=== PATIENT | male | born 1970 | race Caucasian/White ===

== ENCOUNTER 2017-06-02 17:17 | Inpatient (IN) | payer OTHER ==
[~2017-06-02] VITALS: Ht 160 cm; Wt 80.8 kg
[2017-06-02 17:19] VITALS: BP 127/73; PULSE 109; RESP 16; TEMP 98.4; O2SAT 97
--- NOTE | 2017-06-02 17:32 | PD ---
Physical Exam Date Seen by Provider: Jun 02, 2017 Time Seen by Provider: 17:30 Narrative 47 YOWM C/O COUGH FOR 1 MONTH . JUST FINISHED ZPAK. HAD COUGHING SPELL TODAY WITH PASSING OUT . NO CP VS REVIEWED WAITING FOR BED PLACEMENT Data Data Last Documented VS Vital Signs Date Time Temp Pulse Resp B/P Pulse Ox O2 Delivery O2 Flow Rate FiO2 06/02/17 17:19 98.4 109 16 127/73 97 MDM Supervised Visit with ISABELL: Ricky Kathleen Jun 02, 2017 17:32
[2017-06-02 20:05] VITALS: BP 132/75; PULSE 93; RESP 23; TEMP 100.4; O2SAT 97
--- NOTE | 2017-06-02 20:11 | PD ---
HPI Chief Complaint: Syncope/Near-Syncope Time Seen by Provider: 20:11 Travel History International Travel<30 days: No Contact w/Intl Traveler<30days: No Traveled to known affect area: No History of Present Illness HPI 47-year-old male presents to the emergency department for evaluation single episode 2 today. Patient states he was lying on the couch and he coughs so hard that he lost consciousness twice. His at bedside states the first and lasted approximately 30 seconds and the second time lasted approximately a minute. He is here on vacation from [place]. The patient states the flight was approximately 1.5 hours. The patient states he feels fine at this time other than having a cough. No headache. No fevers or chills. No chest pain. He states he feels short of breath only because he is trying not to cough. No abdominal pain. No nausea, vomiting, diarrhea. He is currently on day 5 of the Z-Erick. He states he has been coughing for approximately a month. Patient denies any chronic medical process. He takes no other medications. Patient does state that he drinks 10-12 beers daily. He denies any illicit drug use. Patient does appear well on exam. [facility] Social History Alcohol Use: Yes (10-12 beers daily) Tobacco Use: No Substance Use: No Allergies-Medications Reported Meds & Prescriptions Reported Meds & Active Scripts Active No Active Prescriptions or Reported Medications Review of Systems Except as stated in HPI: all other systems reviewed are Neg Physical Exam Narrative GENERAL: Well-nourished, well-developed male patient, afebrile SKIN: Focused skin assessment warm/dry. HEAD: Normocephalic. Atraumatic. EYES: No scleral icterus. No injection or drainage. NECK: Supple, trachea midline. No JVD or lymphadenopathy. CARDIOVASCULAR: Regular rate and rhythm without murmurs, gallops, or rubs. RESPIRATORY: Breath sounds equal bilaterally. No accessory muscle use. GASTROINTESTINAL: Abdomen soft, non-tender, nondistended. MUSCULOSKELETAL: No cyanosis, or edema. BACK: Nontender without obvious deformity. No CVA tenderness. Data Data Last Documented VS Vital Signs Date Time Temp Pulse Resp B/P Pulse Ox O2 Delivery O2 Flow Rate FiO2 06/02/17 21:00 Room Air 06/02/17 21:00 97 06/02/17 20:05 100.4 93 23 132/75 Orders Electrocardiogram (06/02/17 20:09) Complete Blood Count With Diff (06/02/17 20:09) Comprehensive Metabolic Panel (06/02/17 20:09) Magnesium (Mg) (06/02/17 20:09) Ckmb (Isoenzyme) Profile (06/02/17 20:09) Troponin I (06/02/17 20:09) Chest, Single Ap (06/02/17 20:09) Ecg Monitoring (06/02/17 20:09) Iv Access Insert/Monitor (06/02/17 20:09) Oximetry (06/02/17 20:09) Sodium Chloride 0.9% Flush (Ns Flush) (06/02/17 20:15) Ct Pulmonary Angiogram (06/02/17 ) CKMB (06/02/17 20:55) CKMB% (06/02/17 20:55) Iohexol 350 Inj (Omnipaque 350 Inj) (06/02/17 22:48) Labs Laboratory Tests Test 06/02/17 06/02/17 20:53 20:55 White Blood Count 10.5 TH/MM3 Red Blood Count 4.66 MIL/MM3 Hemoglobin 14.1 GM/DL Hematocrit 41.2 % Mean Corpuscular Volume 88.5 FL Mean Corpuscular Hemoglobin 30.2 PG Mean Corpuscular Hemoglobin 34.1 % Concent Red Cell Distribution Width 12.2 % Platelet Count 382 TH/MM3 Mean Platelet Volume 6.6 FL Neutrophils (%) (Auto) 81.4 % Lymphocytes (%) (Auto) 11.2 % Monocytes (%) (Auto) 5.9 % Eosinophils (%) (Auto) 0.9 % Basophils (%) (Auto) 0.6 % Neutrophils # (Auto) 8.6 TH/MM3 Lymphocytes # (Auto) 1.2 TH/MM3 Monocytes # (Auto) 0.6 TH/MM3 Eosinophils # (Auto) 0.1 TH/MM3 Basophils # (Auto) 0.1 TH/MM3 CBC Comment DIFF FINAL Differential Comment Sodium Level 132 MEQ/L Potassium Level 4.2 MEQ/L Chloride Level 99 MEQ/L Carbon Dioxide Level 23.8 MEQ/L Anion Gap 9 MEQ/L Blood Urea Nitrogen 5 MG/DL Creatinine 0.67 MG/DL Estimat Glomerular Filtration 128 ML/MIN Rate Random Glucose 83 MG/DL Calcium Level 8.7 MG/DL Magnesium Level 2.2 MG/DL Total Bilirubin 0.4 MG/DL Aspartate Amino Transf 57 U/L (AST/SGOT) Alanine Aminotransferase 122 U/L (ALT/SGPT) Alkaline Phosphatase 94 U/L Total Creatine Kinase 143 U/L Creatine Kinase MB 0.6 NG/ML Troponin I LESS THAN 0.02 NG/ML Total Protein 7.7 GM/DL Albumin 2.6 GM/DL MDM Medical Decision Making Medical Screen Exam Complete: Yes Emergency Medical Condition: Yes Medical Record Reviewed: Yes Differential Diagnosis Vasovagal syncope versus cardiac arrhythmia versus electrolyte abnormality Narrative Course 47-year-old male presents to the emergency department after syncopal episode 2 while laying on the couch. Patient appears well exam. He is laughing during my exam. EKG, CBC, CMP, CK, troponin, magnesium, chest x-ray ordered and pending. EKG shows sinus rhythm, heart rate 88, no acute ST changes. CBC shows no acute abnormality. CMP shows elevated AST 57, ALT 122. CK is 143. Troponin is less than 0.02. Magnesium is 2.2. Chest x-ray shows no acute abnormality. CT pulmonary angiogram is ordered and pending. My attending physician, Dr. Simon, will resume care and disposition of patient. Scripts No Active Prescriptions or Reported Meds June Perea Jun 02, 2017 20:11 June Perea Jun 02, 2017 20:11
[2017-06-02] MEDS ORDERED: SODIUM CHLORIDE 0.9% FLUSH 10 ML FLUSH IVF PRN (20:15)
[2017-06-02 21:00] VITALS: O2SAT 97
[2017-06-02 21:16] LABS: AUTOMATED NEUTROPHIL # 8.6 TH/MM3 (1.8-7.7); BASOPHIL # 0.1 TH/MM3 (0-0.2); BASOPHIL % 0.6 % (0.0-2.0); EOSINOPHIL # 0.1 TH/MM3 (0-0.4); EOSINOPHIL % 0.9 % (0.0-4.0); HEMATOCRIT 41.2 % (39.0-51.0); HEMO FLAGS DIFF FINAL; LYMPH % 11.2 % (9.0-44.0); LYMPHOCYTE # 1.2 TH/MM3 (1.0-4.8); MEAN CELL VOLUME 88.5 FL (80.0-100.0); MEAN CORPUSCULAR HEMOGLOBIN 30.2 PG (27.0-34.0); MEAN CORPUSCULAR HGB CONC 34.1 % (32.0-36.0); MONO % 5.9 % (0.0-8.0); NEUT % 81.4 % (16.0-70.0); PLATELET COUNT 382 TH/MM3 (150-450); RED BLOOD COUNT 4.66 MIL/MM3 (4.50-5.90); RED CELL DISTRIBUTION WIDTH 12.2 % (11.6-17.2); WHITE BLOOD COUNT 10.5 TH/MM3 (4.0-11.0)
--- NOTE | 2017-06-02 21:57 | RADRPT ---
EXAM DATE/TIME: 06/02/2017 20:05 CORRECTION Corrected on: June 02, 2017; [facility] COMPARISON: No previous studies available for comparison. INDICATIONS : 2 syncopal episodes today. MEDICAL HISTORY : None. SURGICAL HISTORY : None. ENCOUNTER: Initial ACUITY: 1 day PAIN SCORE: 0/10 LOCATION: Bilateral chest FINDINGS: A single view of the chest demonstrates a density overlying the left hilar region. CT pending. Right lung is clear. No significant effusion. Heart size normal. CONCLUSION: Abnormal density overlying the left hilar region. CT pending Ricky Arce MD on June 02, 2017 at 21:55 Board Certified Radiologist. This report was verified electronically. Ricky Arce MD on June 02, 2017 at 22:55 Board Certified Radiologist. This report was verified electronically.
[2017-06-02 22:02] LABS: ANION GAP 9 MEQ/L (5-15); BICARBONATE 23.8 MEQ/L (21.0-32.0); BLOOD UREA NITROGEN 5 MG/DL (7-18); CHLORIDE 99 MEQ/L (98-107); GLOMERULAR FILTRATION RATE 128 ML/MIN (>89); MAGNESIUM 2.2 MG/DL (1.5-2.5); POTASSIUM 4.2 MEQ/L (3.5-5.1); SODIUM (NA) 132 MEQ/L (136-145)
[2017-06-02 22:04] LABS: ALT (GPT) 122 U/L (12-78); AST (GOT) 57 U/L (15-37)
[2017-06-02 22:07] LABS: ALKALINE PHOSPHATASE 94 U/L (45-117); CREATINE KINASE 143 U/L (39-308); TOTAL BILIRUBIN ADULT 0.4 MG/DL (0.2-1.0)
[2017-06-02 22:19] LABS: CKMB 0.6 NG/ML (0.5-3.6)
[2017-06-02] MEDS ORDERED: IOHEXOL 350 MG/ML 10 ML VIAL (for RAD DIAG) IV ONE (22:48)
--- NOTE | 2017-06-02 23:01 | RADRPT ---
EXAM DATE/TIME: 06/02/2017 22:41 [facility] COMPARISON: No previous studies available for comparison. INDICATIONS : Syncopal episode. IV CONTRAST: 75 cc Omnipaque 350 (iohexol) IV RADIATION DOSE: 23.38 CTDIvol (mGy) MEDICAL HISTORY : None SURGICAL HISTORY : None. ENCOUNTER: Initial ACUITY: 1 day PAIN SCALE: 0/10 LOCATION: chest TECHNIQUE: Volumetric scanning of the chest was performed using a pulmonary embolism protocol MIP images were re constructed. Using automated exposure control and adjustment of the mA and/or kV according to patien t size, radiation dose was kept as low as reasonably achievable to obtain optimal diagnostic quality images. DICOM format image data is available electronically for review and comparison. Follow-up recommendations for detected pulmonary nodules are based at a minimum on nodule size and pa tient risk factors according to Fleischner Society Guidelines. FINDINGS: No filling defects identified to suggest pulmonary embolic disease. There is a 5.9 cm mass in the superior segment left with central necrosis or abscess formation small air-fluid level. Finding is probably infectious in nature. There is also consolidation extending into the remainder of the posterior left lower lobe and there is a small left-sided pleural effusion. Rig ht lung is clear. Mildly enlarged prevascular and left hilar lymph nodes present. Small pericardial effusion. No acute findings in the upper abdomen. Multiple calcified mediastinal hi lar lymph nodes noted. CONCLUSION: 1. Negative for pulmonary embolus. 2. Cavitary 5.9 cm mass superior segment left lower lobe. Findings most characteristic of a lung abs cess with adjacent pneumonic infiltrate and small left effusion. Cannot exclude a cavitary neoplasm a lthough would consider less likely. Mildly enlarged mediastinal and left hilar lymph nodes. Ricky Arce MD on June 02, 2017 at 22:55 Board Certified Radiologist. This report was verified electronically.
[2017-06-02] MEDS ORDERED: MORPHINE SULFATE 4 MG/ML INJ IV PRN (23:30)
[2017-06-02] MEDS ORDERED: LACTULOSE SYRUP 20 GM/30 ML CUP PO PRN (23:30)
[2017-06-02] MEDS ORDERED: SENNOSIDES 8.6 MG TAB PO PRN (23:30)
[2017-06-02] MEDS ORDERED: ACETAMINOPHEN/HYDROcodone 325 MG/5 MG TAB PO PRN (23:30)
[2017-06-02] MEDS ORDERED: Vancomycin Consult Pharmacy 1 EA OTHER SCH (23:30)
[2017-06-02] MEDS ORDERED: MAGNESIUM HYDROXIDE SUSP 30 ML CUP PO PRN (23:30)
[2017-06-02] MEDS ORDERED: ONDANSETRON HCL 4 MG/2 ML VIAL IVP PRN (23:30)
[2017-06-02] MEDS ORDERED: PIPERACIL-TAZO 4.5 GM PREMIX 100 ML IV ONE (23:30)
[2017-06-02] MEDS ORDERED: BISACODYL 10 MG SUPP RECTAL PRN (23:30)
[2017-06-02] MEDS ORDERED: VANCOMYCIN INJ 1,000 MG in SODIUM CHLOR 0.9% 250 ML INJ 250 ML IV ONE (23:30)
[2017-06-02] MEDS ORDERED: SODIUM CHLORIDE 0.9% FLUSH 10 ML FLUSH IV FLUSH PRN (23:30)
[2017-06-02] MEDS ORDERED: RESP: ALBUTEROL 2.5 MG/IPRATROPIUM 0.5 MG NEB (PRN) NEB (23:30)
--- NOTE | 2017-06-02 23:33 | PD ---
Data Data Last Documented VS Vital Signs Date Time Temp Pulse Resp B/P Pulse Ox O2 Delivery O2 Flow Rate FiO2 06/02/17 21:00 Room Air 06/02/17 21:00 97 06/02/17 20:05 100.4 93 23 132/75 Orders Electrocardiogram (06/02/17 20:09) Complete Blood Count With Diff (06/02/17 20:09) Comprehensive Metabolic Panel (06/02/17 20:09) Magnesium (Mg) (06/02/17 20:09) Ckmb (Isoenzyme) Profile (06/02/17 20:09) Troponin I (06/02/17 20:09) Chest, Single Ap (06/02/17 20:09) Ecg Monitoring (06/02/17 20:09) Iv Access Insert/Monitor (06/02/17 20:09) Oximetry (06/02/17 20:09) Sodium Chloride 0.9% Flush (Ns Flush) (06/02/17 20:15) Ct Pulmonary Angiogram (06/02/17 ) CKMB (06/02/17 20:55) CKMB% (06/02/17 20:55) Iohexol 350 Inj (Omnipaque 350 Inj) (06/02/17 22:48) Blood Culture (06/02/17 23:22) Vancomycin Inj (Vancomycin Inj) (06/02/17 23:30) Piperacil-Tazo 4.5 Gm Premix (Zosyn 4.5 (06/02/17 23:30) Admit Order (Ed Use Only) (06/02/17 23:28) Labs Laboratory Tests Test 06/02/17 06/02/17 20:53 20:55 White Blood Count 10.5 TH/MM3 Red Blood Count 4.66 MIL/MM3 Hemoglobin 14.1 GM/DL Hematocrit 41.2 % Mean Corpuscular Volume 88.5 FL Mean Corpuscular Hemoglobin 30.2 PG Mean Corpuscular Hemoglobin 34.1 % Concent Red Cell Distribution Width 12.2 % Platelet Count 382 TH/MM3 Mean Platelet Volume 6.6 FL Neutrophils (%) (Auto) 81.4 % Lymphocytes (%) (Auto) 11.2 % Monocytes (%) (Auto) 5.9 % Eosinophils (%) (Auto) 0.9 % Basophils (%) (Auto) 0.6 % Neutrophils # (Auto) 8.6 TH/MM3 Lymphocytes # (Auto) 1.2 TH/MM3 Monocytes # (Auto) 0.6 TH/MM3 Eosinophils # (Auto) 0.1 TH/MM3 Basophils # (Auto) 0.1 TH/MM3 CBC Comment DIFF FINAL Differential Comment Sodium Level 132 MEQ/L Potassium Level 4.2 MEQ/L Chloride Level 99 MEQ/L Carbon Dioxide Level 23.8 MEQ/L Anion Gap 9 MEQ/L Blood Urea Nitrogen 5 MG/DL Creatinine 0.67 MG/DL Estimat Glomerular Filtration 128 ML/MIN Rate Random Glucose 83 MG/DL Calcium Level 8.7 MG/DL Magnesium Level 2.2 MG/DL Total Bilirubin 0.4 MG/DL Aspartate Amino Transf 57 U/L (AST/SGOT) Alanine Aminotransferase 122 U/L (ALT/SGPT) Alkaline Phosphatase 94 U/L Total Creatine Kinase 143 U/L Creatine Kinase MB 0.6 NG/ML Troponin I LESS THAN 0.02 NG/ML Total Protein 7.7 GM/DL Albumin 2.6 GM/DL MDM Supervised Visit with ISABELL: No Narrative Course I, Dr. Simon, have reviewed the advance practice practitioner's documentation and am in agreement, met with the patient face to face, made the diagnosis, and the medical decision making was done by me. See her note for further details. Briefly this a 47-year-old male who is here on vacation from [place] who is here with his for evaluation of 2 syncopal episodes that occurred today after coughing. Patient has had upper respiratory symptoms for the last 3 weeks with cough productive of greenish sputum. He was started on a Z-Erick 5 days ago. On physical exam the patient is awake and alert and is comfortable. He is not having any chest pain. He is in no acute distress. Vital signs show heart rate 93, blood pressure 132/75, pulse ox 95% on room air , oral temp of 100.4F. CBC shows WBC 10.5, hemoglobin 14.1, hematocrit 41.2, platelets 382, neutrophils 81.4%. CMP is remarkable for AST 75, ALT 122, otherwise unremarkable. Cardiac enzymes are negative. EKG shows no signs of ischemia with normal intervals. There is an S1Q3T3 pattern. CT pulmonary angiogram: CONCLUSION: 1. Negative for pulmonary embolus. 2. Cavitary 5.9 cm mass superior segment left lower lobe. Findings most characteristic of a lung abscess with adjacent pneumonic infiltrate and small left effusion. Cannot exclude a cavitary neoplasm although would consider less likely. Mildly enlarged mediastinal and left hilar lymph nodes. Patient and patient's significant other made aware of all findings. Plan is for patient to be admitted to the hospital on IV antibiotics with pulmonary consultation. Patient and the patient's are amenable to this plan. Case discussed with hospitalist Dr. Haynes who will admit the patient to her service. Diagnosis Primary Impression: Lung abscess Qualified Code: J85.1 - Abscess of lower lobe of left lung with pneumonia Additional Impression: Syncope Qualified Code: R55 - Syncope, unspecified syncope type Admitting Information Admitting Physician Requests: Admit Scripts No Active Prescriptions or Reported Meds Ray Simon MD Jun 02, 2017 23:33
--- NOTE | 2017-06-02 23:33 | HHI.HP ---
[facility] No Primary Care Physician Admission Diagnosis lung abscess, syncope Diagnoses: (1) Sepsis Diagnosis: Principal (2) Lung abscess Diagnosis: Principal (3) Syncope Diagnosis: Principal (4) Alcohol abuse Diagnosis: Principal Travel History International Travel<30 Days: No Contact w/Intl Traveler <30 Da: No Traveled to Known Affected Are: No History of Present Illness This is a 47-year-old male with no significant PMH except for Alcohol Abuse who presented to the ER with secondary to syncopal episode x2. Per , pt had "coughing fit and passed out". States he's had persistent productive cough w/ yellow-brown sputum for approx 1mo. Visiting w/ from [place], seen in Urgent Care on arrival to [facility] and started on Z-Erick x5 days which he completed yesterday. Reports subjective fever/chills but hasn't taken temp. On arrival, BP 132/75, HR 93, O2 sat 97% on RA, Temp 100.4. WBC normal however elevated neutrophil count. Chemistry essentially unremarkable except for mildly elevated LFTs. Troponin negative. CXR with abnormal density of left hilar region. CTA Pulm negative for PE, noted to have cavitary 5.9 cm mass left lower lobe characteristic with lung abscess and adjacent pneumonic infiltrate with small left effusion. Patient reports no previous history of similar findings. S/p Blood Cultures and Vanc/Zosyn. Review of Systems Except as stated in HPI: all other systems reviewed are Neg ROS: 14 point review of systems otherwise negative. Past Family Social History Past Medical History PMH: Alcohol Abuse Past Surgical History PAST SURGICAL HISTORY: Wrist Surgery Allergies: Coded Allergies: No Known Allergies (Unverified , 06/02/17) Family History PAST FAMILY HISTORY: Reviewed. No h/o DM or CAD Social History PAST SOCIAL HISTORY: Drinks 10-12 beers per day. Negative for tobacco or drugs. Physical Exam Vital Signs Vital Signs Date Time Temp Pulse Resp B/P Pulse Ox O2 Delivery O2 Flow Rate FiO2 06/02/17 21:00 Room Air 06/02/17 21:00 97 Room Air 06/02/17 20:05 100.4 93 23 132/75 97 Room Air 06/02/17 17:19 98.4 109 16 127/73 97 Physical Exam PE: GENERAL: Very pleasant middle-aged white male in no acute distress, sunburnt. at bedside. HEENT: PERRLA, EOMI. No scleral icterus or conjunctival pallor. No lid lag or facial droop. CARDIOVASCULAR: Regular rate and rhythm. No obvious murmurs to auscultation. No chest tenderness to palpation. RESPIRATORY: No obvious rhonchi or wheezing. Clear to auscultation. Breath sounds equal bilaterally. GASTROINTESTINAL: Abdomen soft, non-tender, nondistended. BS normal. MUSCULOSKELETAL: Extremities without clubbing, cyanosis, or edema. No obvious deformities. NEUROLOGICAL: Awake, alert and oriented x4. No focal neurologic deficits. Moving both upper and lower extremities spontaneously. Laboratory Laboratory Tests Test 06/02/17 06/02/17 20:53 20:55 White Blood Count 10.5 Red Blood Count 4.66 Hemoglobin 14.1 Hematocrit 41.2 Mean Corpuscular Volume 88.5 Mean Corpuscular Hemoglobin 30.2 Mean Corpuscular Hemoglobin 34.1 Concent Red Cell Distribution Width 12.2 Platelet Count 382 Mean Platelet Volume 6.6 Neutrophils (%) (Auto) 81.4 Lymphocytes (%) (Auto) 11.2 Monocytes (%) (Auto) 5.9 Eosinophils (%) (Auto) 0.9 Basophils (%) (Auto) 0.6 Neutrophils # (Auto) 8.6 Lymphocytes # (Auto) 1.2 Monocytes # (Auto) 0.6 Eosinophils # (Auto) 0.1 Basophils # (Auto) 0.1 CBC Comment DIFF FINAL Differential Comment Sodium Level 132 Potassium Level 4.2 Chloride Level 99 Carbon Dioxide Level 23.8 Anion Gap 9 Blood Urea Nitrogen 5 Creatinine 0.67 Estimat Glomerular Filtration 128 Rate Random Glucose 83 Calcium Level 8.7 Magnesium Level 2.2 Total Bilirubin 0.4 Aspartate Amino Transf 57 (AST/SGOT) Alanine Aminotransferase 122 (ALT/SGPT) Alkaline Phosphatase 94 Total Creatine Kinase 143 Creatine Kinase MB 0.6 Troponin I LESS THAN 0.02 Total Protein 7.7 Albumin 2.6 Result Diagram: 06/02/17205206/02/172054 Assessment and Plan Problem List: (1) Sepsis ICD Code: A41.9 Status: Acute (2) Lung abscess ICD Code: J85.2 Status: Acute (3) Syncope ICD Code: R55 Status: Acute (4) Alcohol abuse ICD Code: F10.10 Status: Acute Assessment and Plan A/P: 1. Sepsis: Temp 100.4, HR 93, WBC normal however elevated neutrophil count. Source-Lung Abscess/PNA. S/p Blood Cultures, Vanc/Zosyn. Follow up cultures, obtain Sputum Cultures, continue w/ IV Abx 2. Lung Abscess: CXR w/ abnormal density left hilar region, CTA Pulm negative for PE, 5.9cm cavitary mass LLL and surrounding infiltrate, images reviewed by me, h/o Alcohol Abuse ?aspiration. No h/o similar findings per patient. + productive cough, obtain Sputum Cultures, continue w/ IV Abx as above. Consult ID and Pulm for further evaluation. 3. Syncope: Likely vasovagal after significant cough. Initial trop negative, check serial enzymes, check Echo, IVF for hydration. 4. Alcohol Abuse: Drinks 10-12 beers/day. High risk for withdrawal, CIWA, Seizure Precautions, MVT/Thiamine/Folate replacement. 5. DVT Prophylaxis: SCD/teds. 6. Social work for DC planning as needed. 7. Case discussed at length with ER physician. Physician Certification 2 Midnight Certification Type: Admission for Inpatient Services Order for Inpatient Services The services are ordered in accordance with Medicare regulations or non- Medicare payer requirements, as applicable. In the case of services not specified as inpatient-only, they are appropriately provided as inpatient services in accordance with the 2-midnight benchmark. Estimated LOS (days): 2 days is the estimated time the patient will need to remain in the hospital, assuming treatment plan goals are met and no additional complications. Post-Hospital Plan: Not yet determined Problem Qualifiers (1) Lung abscess: Qualified Code: J85.1 - Abscess of lower lobe of left lung with pneumonia (2) Syncope: Qualified Code: R55 - Syncope, unspecified syncope type Kaity Haynes MD Jun 02, 2017 23:33
[2017-06-03] VITALS (8 sets, daily range): BP systolic 129–192; BP diastolic 71–108; PULSE 51–97; RESP 17–18; TEMP 97.7–98.5; O2SAT 96–97
[2017-06-03] MEDS ORDERED: VANCOMYCIN INJ 750 MG in SODIUM CHLOR 0.9% 250 ML INJ 250 ML IV SCH ×2
[2017-06-03] MEDS: SODIUM CHLOR 0.9% 1000 ML INJ 1,000 ML IV SCH ×3 (00:54→09:29)
[2017-06-03] MEDS: ACETAMINOPHEN 325 MG TAB PO PRN (03:07)
[2017-06-03] MEDS ORDERED: LORazepam 2 MG TAB PO PRN (03:45)
[2017-06-03] MEDS ORDERED: LORazepam 1 MG TAB PO PRN (03:45)
[2017-06-03] MEDS ORDERED: HALOPERIDOL LACTATE 5 MG/ML AMP IM PRN (03:45)
[2017-06-03] MEDS ORDERED: FLUMAZENIL 0.5 MG/5 ML VIAL IV PUSH PRN (03:45)
[2017-06-03] MEDS ORDERED: LORazepam 2 MG/ML VIAL IV PUSH PRN ×4 (03:45)
[2017-06-03] MEDS: PIPERACIL-TAZO 4.5 GM PREMIX 100 ML IV SCH ×3 (05:53→18:15)
[2017-06-03] MEDS: SODIUM CHLORIDE 0.9% FLUSH 10 ML FLUSH IV FLUSH SCH ×2 (09:00→21:00)
[2017-06-03] MEDS: DOCUSATE SODIUM 50 MG/SENNA 8.6 MG TAB PO SCH ×2 (09:14→21:00)
[2017-06-03] MEDS: THIAMINE HCL 100 MG TAB PO SCH (09:14)
[2017-06-03] MEDS: MULTIVITAMINS/MINERALS THERAPEUTIC TAB PO SCH (09:14)
[2017-06-03] MEDS: FOLIC ACID 1 MG TAB PO SCH (09:14)
--- NOTE | 2017-06-03 09:57 | HHI.PR ---
Subjective Remarks No further fevers as far since antibiotics were started. Patient has no new complaints. Symptoms of sepsis have resolved right now. Objective Vital Signs Date Time Temp Pulse Resp B/P Pulse Ox O2 Delivery O2 Flow Rate FiO2 06/03/17 08:00 97.7 51 17 192/108 97 06/03/17 04:00 97.7 80 18 137/71 96 06/03/17 00:00 98.3 97 18 134/75 97 06/02/17 21:00 Room Air 06/02/17 21:00 97 Room Air 06/02/17 20:05 100.4 93 23 132/75 97 Room Air 06/02/17 17:19 98.4 109 16 127/73 97 Result Diagram: 06/02/17205206/02/172054 Objective Remarks GENERAL: NAD, A&Ox3 HEAD: Normocephalic. NECK: Supple, trachea midline. No lymphadenopathy. EYES: No scleral icterus. No injection or drainage. CARDIOVASCULAR: Regular rate and rhythm without murmurs, gallops, or rubs. RESPIRATORY: Breath sounds equal bilaterally. No accessory muscle use. GASTROINTESTINAL: Abdomen soft, non-tender, nondistended. MUSCULOSKELETAL: No cyanosis, or edema. SKIN: Warm and dry. NEURO: No focal neurological deficitis. A/P Problem List: (1) Sepsis ICD Code: A41.9 (2) Lung abscess ICD Code: J85.2 (3) Syncope ICD Code: R55 (4) Alcohol abuse ICD Code: F10.10 Assessment and Plan Assessment and Plan 47-year-old male admitted secondary to sepsis with lung abscess. Sepsis Resolved Follow for any recurrence Lung abscess Pneumonia Follow vital signs Follow blood cultures Abscess of 5.9 cm Continue vancomycin and Zosyn ID following Pulmonology following History of alcohol abuse Follow for any withdrawals Continue multivitamin Continue thiamine Continue folic acid Syncope Likely vasovagal and related to infection Follow for recurrence Echocardiogram pending DVT prophylaxis SCDs Discharge planning No discharge today Problem Qualifiers (1) Lung abscess: Qualified Code: J85.1 - Abscess of lower lobe of left lung with pneumonia (2) Syncope: Qualified Code: R55 - Syncope, unspecified syncope type Jeffery Lara MD Jun 03, 2017 09:57
[2017-06-03] MEDS ORDERED: cloNIDine HCL 0.1 MG TAB PO PRN (10:00)
[2017-06-03 10:46] LABS: AUTOMATED NEUTROPHIL # 5.4 TH/MM3 (1.8-7.7); BASOPHIL # 0.1 TH/MM3 (0-0.2); BASOPHIL % 1.1 % (0.0-2.0); EOSINOPHIL # 0.1 TH/MM3 (0-0.4); EOSINOPHIL % 1.8 % (0.0-4.0); HEMATOCRIT 36.5 % (39.0-51.0); HEMO FLAGS DIFF FINAL; LYMPH % 13.2 % (9.0-44.0); LYMPHOCYTE # 0.9 TH/MM3 (1.0-4.8); MEAN CELL VOLUME 87.8 FL (80.0-100.0); MEAN CORPUSCULAR HEMOGLOBIN 30.5 PG (27.0-34.0); MEAN CORPUSCULAR HGB CONC 34.7 % (32.0-36.0); MONO % 7.4 % (0.0-8.0); NEUT % 76.5 % (16.0-70.0); PLATELET COUNT 338 TH/MM3 (150-450); RED BLOOD COUNT 4.15 MIL/MM3 (4.50-5.90); RED CELL DISTRIBUTION WIDTH 12.6 % (11.6-17.2)
[2017-06-03 10:47] LABS: ANION GAP 8 MEQ/L (5-15); AST (GOT) 33 U/L (15-37); BICARBONATE 25.9 MEQ/L (21.0-32.0); BLOOD UREA NITROGEN 9 MG/DL (7-18); CHLORIDE 102 MEQ/L (98-107); GLOMERULAR FILTRATION RATE 113 ML/MIN (>89); POTASSIUM 3.9 MEQ/L (3.5-5.1); SODIUM (NA) 136 MEQ/L (136-145)
[2017-06-03 10:48] LABS: ALT (GPT) 91 U/L (12-78)
[2017-06-03 10:52] LABS: ALKALINE PHOSPHATASE 80 U/L (45-117); TOTAL BILIRUBIN ADULT 0.5 MG/DL (0.2-1.0)
--- NOTE | 2017-06-03 14:38 | EKG ---
Date Performed: 06/02/2017 Time Performed: 21:23:50 PTAGE: 47 years EKG: Sinus rhythm NORMAL ECG NO PREVIOUS TRACING DOCTOR: Aubrey Antonio Interpretating Date/Time 06/03/2017 14:35:31
[2017-06-03] MEDS ORDERED: VANCOMYCIN INJ 1,750 MG in SODIUM CHLORID 0.9% 500 ML INJ 500 ML IV SCH (15:00)
[2017-06-03] MEDS: CLINDAMYCIN INJ 600 MG in SODIUM CHLORIDE 0.9% INJ 100 ML IV SCH (16:00)
[2017-06-03 16:44] LABS: APTT (PATIENT) 29.9 SEC (24.3-30.1); PROTHROMBIN TIME - PATIENT 10.7 SEC (9.8-11.6)
--- NOTE | 2017-06-03 17:02 | MB ---
cc: ASHA ANDERSON MD, CAMILLE MD DATE OF CONSULTATION: 06/03/[address] Grewal REASON FOR CONSULTATION: Lung abscess. HISTORY OF PRESENT ILLNESS This is a 47-year-old white male who has had a cough for about three weeks. The patient is here visiting and vacationing from [place]. The patient had a cough and was seen by an outpatient urgent care facility and was put on a Z-Erick. He took Z-Erick and however, the cough persisted. His noted that yesterday while he was on the couch he had a coughing spell and went and passed out and was out for about 10 to 15 minutes per his . He then came too and his mental status was normal. They continued to watch television and approximately a couple of hours later the same thing happened and she brought him to the emergency department to be evaluated. The patient reports that he has had a cough for about a month at but no shortness of breath. At one point he had a diffuse rash and the skin and they felt that it was due to contact and they changed soaps and it went away. He notes that he has been coughing up rather dark sputum, along with brownish to light green sputum. He also notes that he has pain at the left upper back with the coughing. He denies headache, nausea, vomiting or dysuria prior to admission. His noted that he started having some sweats after he was put on the Z-Erick. The patient trains players in Lacrosse He denies any recent trauma or strain. Last nights temperature trinh to 100.4 degrees. Initial temperature emergency department was 98.4 and heart rate was 109 the white blood cell count was normal. The patient had a chest x-ray which showed an abnormal density overlying the left hilar region. Subsequently a CT scan showed a cavitary 5.9 cm mass at the superior segment of the left lower lobe consistent with a lung abscess and also adjacent pneumonic infiltrate and a small left pleural effusion. Sputum was sent for acid-fast bacilli and came back negative. Blood cultures have no growth in 1 day. A sputum culture is pending. Sputum Gram stain showed rare epithelial cells and moderate white blood cells and also light mixed derrek. The patient is currently laying in bed with his back propped up. His only complaint is pain in the back and cough. He is on O2 by a nasal cannula and does not feel short of breath. PAST MEDICAL HISTORY Alcohol abuse. Wrist surgery. ALLERGIES NO KNOWN DRUG ALLERGIES. MEDICATIONS 1. Vancomycin. 2. Piperacillin / tazobactam 3. Multiple vitamin. 4. Thiamine. SOCIAL HISTORY The patient is . No tobacco use. Positive alcohol approximately 10-12 beers daily. No illicit drugs. FAMILY HISTORY Noncontributory. REVIEW OF SYSTEMS Pertinent mentioned history of present illness. PHYSICAL EXAMINATION IN GENERAL: This is a well-developed male who is in no acute distress. He is awake and alert and oriented. VITAL SIGNS: Temperature 98.2, BP 129/82, respirations 817, heart rate 92. HEAD, EYES, EARS, NOSE, AND THROAT: Head is atraumatic. Extraocular movements grossly intact, pupils reactive to light. The pupils dilated. No icterus. Oropharynx no visible lesions. NECK: Supple without adenopathy or swelling. LUNGS: Decreased breath sounds throughout. No audible rhonchi. HEART: Regular S1-S2 without murmurs, rubs or gallops. ABDOMEN: Bowel sounds present, soft, no tenderness appreciated. RECTAL: Rectal not performed. EXTREMITIES: No clubbing, cyanosis or edema. No calf tenderness. Well-developed musculature. SKIN: No rash. The patient has a red hue to the skin. NEUROLOGIC: Nonfocal. PSYCHIATRIC: The patient is pleasant, calm and cooperative. LABORATORY DATA WBC 7.0, platelet count 338, 76% neutrophils, 13% lymphocytes, hemoglobin 12.7, creatinine 0.75, BUN nine, sodium 136. Liver function tests normal. IMPRESSION 1. Left lung abscess involving the superior segment of the left lower lung. 2. Persistent cough. 3. Pneumonia. RECOMMENDATIONS 1. Monitor the current sputum culture 2. Continue piperacillin / tazobactam. 3. Discontinue vancomycin. 4. Begin clindamycin. 5. Send another sputum sample since the gram stain of the first had some epithelial cells and to try to get the higher yield on culture. 6. Monitor clinical status. 7. The cultures will be closely followed as well as the patient's clinical status. Please call if the culture becomes positive so antibiotic changes can be addressed. Thank you for this consultation. Asha Anderson MD FD/isacc /4:02 PM /4:29 PM MTDFreda
--- NOTE | 2017-06-03 21:19 | MB ---
cc: JACOB MEDEROS DATE OF CONSULTATION 06/03/17 REASON FOR CONSULTATION Lung abscess and pneumonia. HISTORY OF PRESENT ILLNESS This 47-year-old white male with a past history of persistent cough for the past 3-4 weeks states that he has had two or three syncopal episodes during coughing fits. The patient was bringing up thick brownish yellow mucous and apparently was seen at the [facility] when he arrived from [place]. He was given a Zithromax Z-Erick. He did have some low grade fevers and mild chills and even after taking the antibiotics he was not feeling any better and thus was seen in the emergency room. A CT chest was done which showed no evidence of pulmonary emboli but had a cavitary mass-like lesion in the left lower lobe consistent with a lung abscess and pneumonia as well as a small effusion. The patient has had mild hemoptysis. He denied any abdominal pain but has had some chest discomfort. He has now been started on IV vancomycin and Zosyn and his temperature is presently down to 99-100. His appetite has been fair. PAST MEDICAL HISTORY essentially unremarkable and he denies any history of chronic lung disease. Denies history of asthma or previous pneumonia. No history of hypertension, PAST SURGICAL HISTORY Wrist surgery. ALLERGIES No drug allergies listed. FAMILY HISTORY Noncontributory HABITS The patient does not smoke. Alcohol use, mostly beer daily. REVIEW OF SYSTEMS The patient has had no weight loss. He has had low grade fevers. He has post nasal drip, cough with expectoration, hoarseness, wheezing. He has no abdominal pains. No GI bleed. No urinary symptoms. No leg or calf muscle pains. No skin rash or joint pains of his extremities and no depression or anxiety. PHYSICAL EXAMINATION GENERAL: This is a well-built middle-aged white male who is alert in no acute distress. No pallor or cyanosis. No clubbing or peripheral edema. Skin turgor was good. VITAL SIGNS: Blood pressure 138/80, pulse is 95, respirations 22, temperature 99.5. HEENT: Head normocephalic. Pupils are reactive and equal. Tongue is moist. Throat is injected. Nasal mucosa edematous. NECK: No bruits or thyroid enlargement or lymphadenopathy. CHEST: Decreased excursions with occasional wheezes heard over the left lung field. No crackles on either side. HEART: The heart sounds are irregular S1-S2. No murmur. No S3. ABDOMEN: Obese, protuberant without masses, no organomegaly or tenderness. Bowel sounds are active. EXTREMITIES: No edema. No calf tenderness. NEUROLOGIC: Reflexes 1+ with no gross motor deficits. Cranial nerves ARE grossly intact. SKIN: No lesions. IMPRESSION 1. Left lower lobe pneumonia with lung abscess 2. Sepsis 3. Cough syncope. 4. Ethanolism 5. Probable reactive airways. PLAN The patient has been placed on antibiotic coverage which we will continue including Zosyn and add clindamycin 600 mg every six. We will get a repeat chest x-ray in a.m. Sputum will be sent for Gram stain and culture. Blood gas studies will be obtained. Nebulized DuoNeb solution added q.i.d. and oxygen supplementation at 2 liters nasal cannula as needed. The patient will be scheduled for bronchoscopy to evaluate the left lower lobe and to rule out any evidence of neoplasm. Thank you, Dr. Haynes, for this consultation. MD MEHUL Joseph/ /8:17 PM /9:01 PM
[2017-06-04] VITALS: BP 146/98; PULSE 90; RESP 18; TEMP 97.8; O2SAT 96
[2017-06-04] MEDS: PIPERACIL-TAZO 4.5 GM PREMIX 100 ML IV SCH ×5 (00:54→23:42)
[2017-06-04] MEDS: CLINDAMYCIN INJ 600 MG in SODIUM CHLORIDE 0.9% INJ 100 ML IV SCH ×4 (00:54→23:42)
[2017-06-04 04:00] VITALS: BP 126/82; PULSE 88; RESP 18; TEMP 98; O2SAT 94
--- NOTE | 2017-06-04 05:53 | RADRPT ---
EXAM DATE/TIME: 06/04/2017 04:27 [facility] COMPARISON: CT PULMONARY ANGIOGRAM, June 02, 2017, 22:41. INDICATIONS : Infiltrate MEDICAL HISTORY : None. SURGICAL HISTORY : None. ENCOUNTER: Initial ACUITY: 2 days PAIN SCORE: Non-responsive. LOCATION: Bilateral chest FINDINGS: A single view of the chest demonstrates consolidation and cavitation left lower lobe similar to recen t CT. Right lung remains clear. No pneumothorax. CONCLUSION: 1. Consolidation and cavitation left lower lobe similar to recent CT examination. Ricky Arce MD on June 04, 2017 at 5:49 Board Certified Radiologist. This report was verified electronically.
[2017-06-04 07:50] VITALS: BP 140/74; PULSE 94; RESP 18; TEMP 97.9; O2SAT 95
[2017-06-04 08:15] VITALS: PULSE 94
[2017-06-04] MEDS: THIAMINE HCL 100 MG TAB PO SCH (09:05)
[2017-06-04] MEDS: DOCUSATE SODIUM 50 MG/SENNA 8.6 MG TAB PO SCH ×2 (09:05→20:52)
[2017-06-04] MEDS: MULTIVITAMINS/MINERALS THERAPEUTIC TAB PO SCH (09:05)
[2017-06-04] MEDS: FOLIC ACID 1 MG TAB PO SCH (09:05)
[2017-06-04] MEDS: SODIUM CHLORIDE 0.9% FLUSH 10 ML FLUSH IV FLUSH SCH ×2 (09:06→20:51)
[2017-06-04 09:55] LABS: HEMATOCRIT 35.8 % (39.0-51.0); MEAN CELL VOLUME 88.9 FL (80.0-100.0); MEAN CORPUSCULAR HGB CONC 33.7 % (32.0-36.0); PLATELET COUNT 336 TH/MM3 (150-450); RED BLOOD COUNT 4.03 MIL/MM3 (4.50-5.90); RED CELL DISTRIBUTION WIDTH 12.3 % (11.6-17.2); REVIEW FLAG FINAL; WHITE BLOOD COUNT 7.5 TH/MM3 (4.0-11.0)
[2017-06-04 10:15] LABS: BICARBONATE 27.2 MEQ/L (21.0-32.0); POTASSIUM 4.3 MEQ/L (3.5-5.1)
[2017-06-04 11:41] VITALS: BP 113/57; PULSE 81; RESP 18; TEMP 98; O2SAT 96
[2017-06-04] MEDS ORDERED: PHARMACY ORDERED LAB ONE (14:45)
--- NOTE | 2017-06-04 15:24 | HHI.PR ---
Subjective Remarks No fevers. No new complaints from the patient. Pending bronchoscopy. Cultures are being monitored. No growth thus far. Objective Vital Signs Date Time Temp Pulse Resp B/P Pulse Ox O2 Delivery O2 Flow Rate FiO2 06/04/17 11:41 98.0 81 18 113/57 96 06/04/17 08:15 94 06/04/17 07:50 97.9 94 18 140/74 95 06/04/17 04:00 98.0 88 18 126/82 94 06/04/17 00:00 97.8 90 18 146/98 96 06/03/17 21:00 78 06/03/17 20:00 98.4 78 18 135/78 96 06/03/17 16:00 98.5 89 17 134/84 96 I/O 06/03/17 06/03/17 06/03/17 06/04/17 06/04/17 06/04/17 07:00 15:00 23:00 07:00 15:00 23:00 Intake Total 969 ml Balance 969 ml Intake IV Total 969 ml # Voids 3 2 1 0 # Bowel Movements 1 Result Diagram: 06/04/1792906/04/1730 Objective Remarks GENERAL: NAD, A&Ox3 HEAD: Normocephalic. NECK: Supple, trachea midline. No lymphadenopathy. EYES: No scleral icterus. No injection or drainage. CARDIOVASCULAR: Regular rate and rhythm without murmurs, gallops, or rubs. RESPIRATORY: Breath sounds equal bilaterally. No accessory muscle use. GASTROINTESTINAL: Abdomen soft, non-tender, nondistended. MUSCULOSKELETAL: No cyanosis, or edema. SKIN: Warm and dry. NEURO: No focal neurological deficitis. A/P Problem List: (1) Sepsis ICD Code: A41.9 (2) Lung abscess ICD Code: J85.2 (3) Syncope ICD Code: R55 (4) Alcohol abuse ICD Code: F10.10 Assessment and Plan Assessment and Plan 47-year-old male admitted secondary to sepsis with lung abscess. Follow cultures. Bronchoscopy pending. Continue antibiotics. Continue to monitor for any signs of infection including fever and leukocytosis. Sepsis Resolved Follow for any recurrence Lung abscess Pneumonia Follow vital signs Follow blood cultures Abscess of 5.9 cm Continue vancomycin and Zosyn ID following Pulmonology following History of alcohol abuse Follow for any withdrawals Continue multivitamin Continue thiamine Continue folic acid Syncope Likely vasovagal and related to infection Follow for recurrence Echocardiogram pending DVT prophylaxis SCDs Discharge planning No discharge today Problem Qualifiers (1) Lung abscess: Qualified Code: J85.1 - Abscess of lower lobe of left lung with pneumonia (2) Syncope: Qualified Code: R55 - Syncope, unspecified syncope type Jeffery Lara MD Jun 04, 2017 3:24 pm
--- NOTE | 2017-06-04 15:35 | HHI.PR ---
Subjective Remarks Cough and some left chest pain. No fever. On antibiotics Objective Vital Signs Date Time Temp Pulse Resp B/P Pulse Ox O2 Delivery O2 Flow Rate FiO2 06/04/17 11:41 98.0 81 18 113/57 96 06/04/17 08:15 94 06/04/17 07:50 97.9 94 18 140/74 95 06/04/17 04:00 98.0 88 18 126/82 94 06/04/17 00:00 97.8 90 18 146/98 96 06/03/17 21:00 78 06/03/17 20:00 98.4 78 18 135/78 96 06/03/17 16:00 98.5 89 17 134/84 96 I/O 06/03/17 06/03/17 06/03/17 06/04/17 06/04/17 06/04/17 06:59 14:59 22:59 06:59 14:59 22:59 Intake Total 969 ml Balance 969 ml Intake IV Total 969 ml # Voids 3 2 1 0 # Bowel Movements 1 Result Diagram: 06/04/17 0930 06/04/17 0930 Objective Remarks GENERAL: This is a well-built middle-aged white male who is alert in no acute distress. No pallor or cyanosis. No clubbing or peripheral edema. Skin turgor was good. HEENT: Head normocephalic. Pupils are reactive and equal. Tongue is moist. Throat is injected. Nasal mucosa edematous. NECK: No bruits or thyroid enlargement or lymphadenopathy. CHEST: Decreased excursions with occasional wheezes heard over the left lung field. No crackles on either side. HEART: The heart sounds are irregular S1-S2. No murmur. No S3. ABDOMEN: Obese, protuberant without masses, no organomegaly or tenderness. Bowel sounds are active. EXTREMITIES: No edema. No calf tenderness. NEUROLOGIC: Reflexes 1+ with no gross motor deficits. Cranial nerves ARE grossly intact. SKIN: No lesions. Assessment and Plan Assessment and Plan IMPRESSION 1. Left lower lobe pneumonia with lung abscess 2. Sepsis 3. Cough syncope. 4. Ethanolism 5. Probable reactive airways. Plan : 1. Cont antibiotics. 2. Will need Bronchoscopy . 3. O2 prn 2L 4. Nebs qid , duoneb 5. Bronch on Tuesday. Susanna Leonardo MD Jun 04, 2017 15:34
[2017-06-04] MEDS ORDERED: RESP: ALBUTEROL CONC 2.5 MG/0.5 ML NEB NEB SCH (15:45)
[2017-06-04] MEDS: SODIUM CHLOR 0.9% 1000 ML INJ 1,000 ML IV SCH (16:47)
[2017-06-04] MEDS ORDERED: METOPROLOL TARTRATE 25 MG TAB PO PRN (17:45)
[2017-06-04] MEDS ORDERED: SODIUM CHLORID 0.9% 500 ML IV PRN (17:45)
[2017-06-04] MEDS ORDERED: POVIDONE IODINE 5% (ANTISEPSIS KIT) 4 APPLICATIONS EACH NARE PRN (17:45)
[2017-06-04] MEDS ORDERED: LACTATED RINGER'S 1000 ML IV PRN (17:45)
[2017-06-04] MEDS ORDERED: INSULIN HUMAN REGULAR 1,000 UNITS/10 ML VIAL SQ PRN (17:45)
[2017-06-04] MEDS ORDERED: CHLORHEXIDINE GLUCONATE 2 % 1 PACK (2 CLOTHS) TOPICAL PRN (17:45)
[2017-06-04 18:39] LABS: APTT (PATIENT) 29.7 SEC (24.3-30.1); PROTHROMBIN TIME - PATIENT 11.1 SEC (9.8-11.6)
[2017-06-04 20:00] VITALS: BP 130/79; PULSE 81; RESP 18; TEMP 97.8; O2SAT 97
[2017-06-04] MEDS: ACETAMINOPHEN 325 MG TAB PO PRN (23:47)
[2017-06-05] VITALS (9 sets, daily range): BP systolic 121–144; BP diastolic 83–89; PULSE 64–95; RESP 17–18; TEMP 97.5–99.2; O2SAT 96–98
[2017-06-05] MEDS: SODIUM CHLOR 0.9% 1000 ML INJ 1,000 ML IV SCH ×3 (01:29→17:57)
[2017-06-05] MEDS: PIPERACIL-TAZO 4.5 GM PREMIX 100 ML IV SCH ×4 (05:54→23:50)
[2017-06-05] MEDS: DOCUSATE SODIUM 50 MG/SENNA 8.6 MG TAB PO SCH ×2 (07:52→21:00)
[2017-06-05] MEDS: THIAMINE HCL 100 MG TAB PO SCH (07:52)
[2017-06-05] MEDS: FOLIC ACID 1 MG TAB PO SCH (07:52)
[2017-06-05] MEDS: MULTIVITAMINS/MINERALS THERAPEUTIC TAB PO SCH (07:52)
[2017-06-05] MEDS: CLINDAMYCIN INJ 600 MG in SODIUM CHLORIDE 0.9% INJ 100 ML IV SCH ×2 (07:55→16:38)
[2017-06-05] MEDS: SODIUM CHLORIDE 0.9% FLUSH 10 ML FLUSH IV FLUSH SCH ×2 (07:56→21:00)
--- NOTE | 2017-06-05 14:57 | HHI.PR ---
Subjective Remarks Cultures negative thus far. Plan for bronchoscopy tomorrow. Patient has no new complaints. Objective Vital Signs Date Time Temp Pulse Resp B/P (MAP) Pulse Ox O2 Delivery O2 Flow Rate FiO2 06/05/17 12:00 98.6 95 18 121/84 (96) 96 06/05/17 08:05 67 06/05/17 08:00 97.5 83 17 131/86 (101) 98 06/05/17 04:24 88 06/05/17 04:00 98.6 75 18 140/88 (105) 97 06/05/17 00:00 99.2 85 18 137/84 (101) 98 06/04/17 20:00 97.8 81 18 130/79 (96) 97 I/O 06/04/17 06/04/17 06/04/17 06/05/17 06/05/17 06/05/17 07:00 15:00 23:00 07:00 15:00 23:00 Intake Total 969 ml 360 ml 1560 ml Balance 969 ml 360 ml 1560 ml Intake Oral 360 ml 360 ml IV Total 969 ml 1200 ml # Voids 0 2 3 4 # Bowel Movements 1 Result Diagram: 06/04/17 0930 06/04/17 0930 Objective Remarks GENERAL: NAD, A&Ox3 HEAD: Normocephalic. NECK: Supple, trachea midline. No lymphadenopathy. EYES: No scleral icterus. No injection or drainage. CARDIOVASCULAR: Regular rate and rhythm without murmurs, gallops, or rubs. RESPIRATORY: Breath sounds equal bilaterally. No accessory muscle use. GASTROINTESTINAL: Abdomen soft, non-tender, nondistended. MUSCULOSKELETAL: No cyanosis, or edema. SKIN: Warm and dry. NEURO: No focal neurological deficitis. A/P Problem List: (1) Sepsis ICD Code: A41.9 - Sepsis, unspecified organism Status: Acute (2) Lung abscess ICD Code: J85.2 - Abscess of lung without pneumonia Status: Acute (3) Syncope ICD Code: R55 - Syncope and collapse Status: Acute (4) Alcohol abuse ICD Code: F10.10 - Alcohol abuse, uncomplicated Status: Acute Assessment and Plan Assessment and Plan 47-year-old male admitted secondary to sepsis with lung abscess. Follow cultures. Bronchoscopy pending for tomorrow. Potential discharge in 1-2 days aced on bronchoscopy and final culture results. Sepsis Resolved Follow for any recurrence Lung abscess Pneumonia Follow vital signs Follow blood cultures Abscess of 5.9 cm Continue vancomycin and Zosyn ID following Pulmonology following History of alcohol abuse Follow for any withdrawals Continue multivitamin Continue thiamine Continue folic acid Syncope Likely vasovagal and related to infection Follow for recurrence Echocardiogram pending DVT prophylaxis SCDs Discharge planning No discharge today Problem Qualifiers (1) Lung abscess: (2) Syncope: Jeffery Lara MD Jun 05, 2017 14:57
--- NOTE | 2017-06-05 17:57 | HHI.PR ---
Subjective Remarks Less Cough and some left chest pain. No fever. On antibiotics. Walks in halls Objective Vital Signs Date Time Temp Pulse Resp B/P (MAP) Pulse Ox O2 Delivery O2 Flow Rate FiO2 06/05/17 16:00 98.3 83 18 132/83 (99) 98 06/05/17 12:00 98.6 95 18 121/84 (96) 96 06/05/17 08:05 67 06/05/17 08:00 97.5 83 17 131/86 (101) 98 06/05/17 04:24 88 06/05/17 04:00 98.6 75 18 140/88 (105) 97 06/05/17 00:00 99.2 85 18 137/84 (101) 98 06/04/17 20:00 97.8 81 18 130/79 (96) 97 I/O 06/04/17 06/04/17 06/04/17 06/05/17 06/05/17 06/05/17 06:59 14:59 22:59 06:59 14:59 22:59 Intake Total 969 ml 360 ml 1560 ml 1058 ml Balance 969 ml 360 ml 1560 ml 1058 ml Intake Oral 360 ml 360 ml IV Total 969 ml 1200 ml 1058 ml # Voids 0 2 3 4 3 # Bowel Movements 1 2 Result Diagram: 06/04/1792906/04/17929 Objective Remarks GENERAL: This is a well-built middle-aged white male who is alert in no acute distress. No pallor or cyanosis. No clubbing or peripheral edema. Skin turgor was good. HEENT: Head normocephalic. Pupils are reactive and equal. Tongue is moist. Throat is injected. Nasal mucosa clear. NECK: No bruits or thyroid enlargement or lymphadenopathy. CHEST: Decreased excursions with occasional wheezes heard over the left lung field. No crackles on either side. HEART: The heart sounds are irregular S1-S2. No murmur. No S3. ABDOMEN: Obese, protuberant without masses, no organomegaly or tenderness. Bowel sounds are active. EXTREMITIES: No edema. No calf tenderness. NEUROLOGIC: Reflexes 1+ with no gross motor deficits. Cranial nerves ARE grossly intact. SKIN: No lesions. Assessment and Plan Assessment and Plan IMPRESSION 1. Left lower lobe pneumonia with lung abscess 2. Sepsis 3. Cough syncope. 4. Ethanolism 5. Probable reactive airways. Plan : 1. Cont antibiotics.as Ordered 2. For Bronchoscopy in am , and risks were discussed. 3. O2 prn 2L 4. Nebs qid , darienb 5. Coag Profile in am Susanna Leonardo MD Jun 05, 2017 17:57
[2017-06-06] MEDS: CLINDAMYCIN INJ 600 MG in SODIUM CHLORIDE 0.9% INJ 100 ML IV SCH ×3 (00:39→16:05)
[2017-06-06 01:04] VITALS: BP 131/76; PULSE 68; RESP 17; TEMP 98; O2SAT 96
[2017-06-06 04:30] VITALS: BP 132/86; PULSE 78; RESP 17; TEMP 97.9; O2SAT 96
[2017-06-06] MEDS: PIPERACIL-TAZO 4.5 GM PREMIX 100 ML IV SCH ×3 (04:57→17:37)
[2017-06-06] MEDS: SODIUM CHLOR 0.9% 1000 ML INJ 1,000 ML IV SCH (04:57)
[2017-06-06 09:00] VITALS: BP 130/83; PULSE 77; RESP 20; TEMP 98.2; O2SAT 95
[2017-06-06] MEDS: SODIUM CHLORIDE 0.9% FLUSH 10 ML FLUSH IV FLUSH SCH (09:01)
[2017-06-06] MEDS: MULTIVITAMINS/MINERALS THERAPEUTIC TAB PO SCH (09:01)
[2017-06-06] MEDS: DOCUSATE SODIUM 50 MG/SENNA 8.6 MG TAB PO SCH (09:01)
[2017-06-06] MEDS: FOLIC ACID 1 MG TAB PO SCH (09:01)
[2017-06-06] MEDS: THIAMINE HCL 100 MG TAB PO SCH (09:02)
[2017-06-06 09:53] LABS: BICARBONATE 26.2 MEQ/L (21.0-32.0); POTASSIUM 3.5 MEQ/L (3.5-5.1)
[2017-06-06 09:57] LABS: HEMATOCRIT 36.7 % (39.0-51.0); MEAN CELL VOLUME 87.6 FL (80.0-100.0); MEAN CORPUSCULAR HEMOGLOBIN 29.4 PG (27.0-34.0); MEAN CORPUSCULAR HGB CONC 33.5 % (32.0-36.0); PLATELET COUNT 346 TH/MM3 (150-450); RED BLOOD COUNT 4.19 MIL/MM3 (4.50-5.90); RED CELL DISTRIBUTION WIDTH 12.2 % (11.6-17.2); REVIEW FLAG FINAL; WHITE BLOOD COUNT 6.4 TH/MM3 (4.0-11.0)
--- NOTE | 2017-06-06 10:35 | HHI.PR ---
Subjective Remarks Bronchoscopy planned for today. If patient has no acute findings and needed samples are collected and if patient is cleared by ID (cultures still pending), then he may be ready for discharge later today vs. tomorrow. Objective Vital Signs Date Time Temp Pulse Resp B/P (MAP) Pulse Ox O2 Delivery O2 Flow Rate FiO2 06/06/17 09:00 98.2 77 20 130/83 (99) 95 06/06/17 04:30 97.9 78 17 132/86 (101) 96 06/06/17 01:04 98.0 68 17 131/76 (94) 96 06/05/17 21:55 77 06/05/17 20:00 98.6 64 17 144/89 (107) 97 06/05/17 16:00 98.3 83 18 132/83 (99) 98 06/05/17 12:00 98.6 95 18 121/84 (96) 96 I/O 06/05/17 06/05/17 06/05/17 06/06/17 06/06/17 06/06/17 07:00 15:00 23:00 07:00 15:00 23:00 Intake Total 1560 ml 1058 ml 966 ml Balance 1560 ml 1058 ml 966 ml Intake Oral 360 ml 240 ml IV Total 1200 ml 1058 ml 726 ml # Voids 4 3 4 # Bowel Movements 2 1 Result Diagram: 06/06/17 0815 06/06/17 0815 Objective Remarks GENERAL: NAD, A&Ox3 HEAD: Normocephalic. NECK: Supple, trachea midline. No lymphadenopathy. EYES: No scleral icterus. No injection or drainage. CARDIOVASCULAR: Regular rate and rhythm without murmurs, gallops, or rubs. RESPIRATORY: Breath sounds equal bilaterally. No accessory muscle use. GASTROINTESTINAL: Abdomen soft, non-tender, nondistended. MUSCULOSKELETAL: No cyanosis, or edema. SKIN: Warm and dry. NEURO: No focal neurological deficitis. A/P Problem List: (1) Sepsis ICD Code: A41.9 - Sepsis, unspecified organism Status: Acute (2) Lung abscess ICD Code: J85.2 - Abscess of lung without pneumonia Status: Acute (3) Syncope ICD Code: R55 - Syncope and collapse Status: Acute (4) Alcohol abuse ICD Code: F10.10 - Alcohol abuse, uncomplicated Status: Acute Assessment and Plan Assessment and Plan 47-year-old male admitted secondary to sepsis with lung abscess. Plan for bronchoscopy later today. Possible discharge this evening or tomorrow. Sepsis Resolved Follow for any recurrence Lung abscess Pneumonia Follow vital signs Follow blood cultures Abscess of 5.9 cm Continue vancomycin and Zosyn ID following Pulmonology following History of alcohol abuse Follow for any withdrawals Continue multivitamin Continue thiamine Continue folic acid Syncope Likely vasovagal and related to infection Follow for recurrence Echocardiogram pending DVT prophylaxis SCDs Discharge planning No discharge today Problem Qualifiers (1) Lung abscess: (2) Syncope: Jeffery Lara MD Jun 06, 2017 10:35
[2017-06-06 13:43] VITALS: BP 139/91; PULSE 83; RESP 20; TEMP 97.5; O2SAT 95
[2017-06-06] MEDS ORDERED: DEXT 5%-NACL 0.45% 1000 ML INJ 1,000 ML IV SCH (15:00)
[2017-06-06] MEDS ORDERED: LIDOCAINE HCL 2% 50 ML VIAL ONE (15:58)
[2017-06-06] MEDS ORDERED: LIDOCAINE HCL 4% PF 5 ML AMP ONE (15:58)
[2017-06-06] MEDS ORDERED: LIDOCAINE VISCOUS 2% SOLN 15 ML UDC ONE (15:58)
[2017-06-06] MEDS ORDERED: SODIUM CHLORIDE 0.9% 20 ML VIAL ONE (15:58)
--- NOTE | 2017-06-06 16:18 | HHI.IDPN ---
Note Infectious Disease Note Patient feels okay. Still coughing up sputum. No hemoptysis. No chest pain. Afebrile. Going for bronchoscopy at 5 pm. On O2 via nasal canula. PAST MEDICAL HISTORY Alcohol abuse. Wrist surgery. ALLERGIES NO KNOWN DRUG ALLERGIES. MEDICATIONS 1. Clindamycin. 2. Piperacillin / tazobactam OBJECTIVE: Vital Signs Date Time Temp Pulse Resp B/P (MAP) Pulse Ox O2 Delivery O2 Flow Rate FiO2 06/06/17 13:43 97.5 83 20 139/91 (107) 95 06/06/17 09:00 98.2 77 20 130/83 (99) 95 06/06/17 04:30 97.9 78 17 132/86 (101) 96 06/06/17 01:04 98.0 68 17 131/76 (94) 96 06/05/17 21:55 77 06/05/17 20:00 98.6 64 17 144/89 (107) 97 Laboratory Tests Test 06/06/17 08:15 White Blood Count 6.4 TH/MM3 Red Blood Count 4.19 MIL/MM3 Hemoglobin 12.3 GM/DL Hematocrit 36.7 % Mean Corpuscular Volume 87.6 FL Mean Corpuscular Hemoglobin 29.4 PG Mean Corpuscular Hemoglobin Concent 33.5 % Red Cell Distribution Width 12.2 % Platelet Count 346 TH/MM3 Mean Platelet Volume 6.8 FL Laboratory Tests Test 06/06/17 08:15 Blood Urea Nitrogen 5 MG/DL Creatinine 0.82 MG/DL Random Glucose 91 MG/DL Calcium Level 8.4 MG/DL Sodium Level 141 MEQ/L Potassium Level 3.5 MEQ/L Chloride Level 108 MEQ/L Carbon Dioxide Level 26.2 MEQ/L Anion Gap 7 MEQ/L Estimat Glomerular Filtration Rate 102 ML/MIN IMAGING: Chest X-Ray 06/04/17 0600 Signed Impressions: Service Date/Time: Sunday, June 04, 2017 04:27 - CONCLUSION: 1. Consolidation and cavitation left lower lobe similar to recent CT examination. Ricky Arce MD CT Angiography 06/02/17 0000 Signed Impressions: Service Date/Time: May 22:41 - CONCLUSION: 1. Negative for pulmonary embolus. 2. Cavitary 5.9 cm mass superior segment left lower lobe. Findings most characteristic of a lung abscess with adjacent pneumonic infiltrate and small left effusion. Cannot exclude a cavitary neoplasm although would consider less likely. Mildly enlarged mediastinal and left hilar lymph nodes. Ricky Arce MD PHYSICAL EXAMINATION GENERAL: No acute distress. He is awake and alert and oriented. HEENT: No icterus. Oropharynx no visible lesions. NECK: Supple without adenopathy or swelling. LUNGS: Decreased breath sounds. No rales or wheezing. HEART: Regular S1-S2 without murmurs, rubs or gallops. ABDOMEN: Bowel sounds present, soft, no tenderness appreciated. EXTREMITIES: No clubbing, cyanosis or edema. No calf tenderness. Well-developed musculature. SKIN: No rash. NEUROLOGIC: Nonfocal. PSYCHIATRIC: The patient is pleasant, calm and cooperative. IMPRESSION 1. Left lung abscess involving the superior segment of the left lower lung. Sputum culture has no growth. 2. Pneumonia. RECOMMENDATIONS 1. Monitor the current sputum culture 2. Continue piperacillin / tazobactam tonight. 3. Continue clindamycin tonight. 4. Discharge on PO clindamycin tomorrow AM (450mg BID) and have patient follow up with his primary doctor and ID specialist in [place]. AFB smear was negative. No restriction for travel. Bakari Montez MD Jun 06, 2017 16:18
[2017-06-06 16:34] VITALS: BP 139/93; PULSE 86; RESP 20; TEMP 98.2; O2SAT 98
[2017-06-06] MEDS ORDERED: CLIN1CAP5 PO (17:42)
[2017-06-06] MEDS ORDERED: LACTTAB8 PO (17:42)
--- NOTE | 2017-06-06 17:51 | HHI.DS ---
Discharge Summary Admission Date Jun 02, 2017 at 23:29 Discharge Date: Jun 06, 2017 Admitting Diagnosis lung abscess, syncope (1) Sepsis ICD Code: A41.9 - Sepsis, unspecified organism Diagnosis: Principal Status: Acute (2) Lung abscess ICD Code: J85.2 - Abscess of lung without pneumonia Diagnosis: Principal Status: Acute (3) Syncope ICD Code: R55 - Syncope and collapse Diagnosis: Secondary Status: Acute (4) Alcohol abuse ICD Code: F10.10 - Alcohol abuse, uncomplicated Diagnosis: Secondary Status: Acute Procedures none Brief History - From Admission This is a 47-year-old male with no significant PMH except for Alcohol Abuse who presented to the ER with secondary to syncopal episode x2. Per , pt had "coughing fit and passed out". States he's had persistent productive cough w/ yellow-brown sputum for approx 1mo. Visiting w/ from [place], seen in Urgent Care on arrival to [facility] and started on Z-Erick x5 days which he completed yesterday. Reports subjective fever/chills but hasn't taken temp. On arrival, BP 132/75, HR 93, O2 sat 97% on RA, Temp 100.4. WBC normal however elevated neutrophil count. Chemistry essentially unremarkable except for mildly elevated LFTs. Troponin negative. CXR with abnormal density of left hilar region. CTA Pulm negative for PE, noted to have cavitary 5.9 cm mass left lower lobe characteristic with lung abscess and adjacent pneumonic infiltrate with small left effusion. Patient reports no previous history of similar findings. S/p Blood Cultures and Vanc/Zosyn. CBC/BMP: 06/06/17 0815 06/06/17 0815 Significant Findings Laboratory Tests Test 06/04/17 09:30 06/04/17 17:14 06/06/17 08:15 Red Blood Count 4.03 MIL/MM3 (4.50-5.90) 4.19 MIL/MM3 (4.50-5.90) Hemoglobin 12.1 GM/DL (13.0-17.0) 12.3 GM/DL (13.0-17.0) Hematocrit 35.8 % (39.0-51.0) 36.7 % (39.0-51.0) Mean Platelet Volume 6.5 FL (7.0-11.0) 6.8 FL (7.0-11.0) Blood Urea Nitrogen 6 MG/DL (7-18) 5 MG/DL (7-18) Calcium Level 8.0 MG/DL (8.5-10.1) 8.4 MG/DL (8.5-10.1) Chloride Level 108 MEQ/L (98-107) Hospital Course Mr. Gan is a 47 year old male. He had a syncopal episode preceded by a cough for 2-3 weeks. As an outpatient he had been treated for bronchitis with azithromycin. He was found, however, to have a left lower lobe pneumonia with lung abscess. IV antibiotics were provided and he has had improvement while here. Cultures were negative, including negativity for AFB. Bronchoscopy was planned, but had to be deferred due to no availability. Patient requested discharge for a return to home and a preference for outpatient bronchoscopy. Outpatient bronchoscopy, follow up with PCP, pulmonology, and infections disease providers, and a delayed outpatient imaging study of the cavitation are recommended. Medically stable for discharge. He will continue antibiotics and will be on clindamycin 450mg PO BID for 10 days more. Medically cleared for discharge to home today, if he is not willing to stay for bronchoscopy at our facility, after PM antibiotics completed. Pt Condition on Discharge: Stable Discharge Disposition: Discharge Home Discharge Time: <= 30 minutes Discharge Instructions DIET: Follow Instructions for: As Tolerated, No Restrictions Activities you can perform: Regular-No Restrictions Follow up Referrals: Infectious Disease - 2 Weeks PCP Follow-up - 1 Week Pulmonology - 2 Weeks New Medications: Clindamycin (Clindamycin) 150 Mg Cap 450 MG PO BID for Infection, #20 CAP 0 Refills Lactobacillus Acidophilus (Lactobacillus Acidophilus) 1 Tab Tab 1 TAB PO TIDAC for Nutritional Supplement, #30 TAB 0 Refills Jeffery Lara MD Jun 06, 2017 17:51
--- NOTE | 2017-06-06 19:22 | HHI.PR ---
Subjective Remarks Bronchoscopy was rescheduled due to Lack of OR time. No fever. On antibiotics. The patient wants to [place] Evaluation No fever Objective Vital Signs Date Time Temp Pulse Resp B/P (MAP) Pulse Ox O2 Delivery O2 Flow Rate FiO2 06/06/17 16:34 98.2 86 20 139/93 (108) 98 06/06/17 13:43 97.5 83 20 139/91 (107) 95 06/06/17 09:00 98.2 77 20 130/83 (99) 95 06/06/17 04:30 97.9 78 17 132/86 (101) 96 06/06/17 01:04 98.0 68 17 131/76 (94) 96 06/05/17 21:55 77 06/05/17 20:00 98.6 64 17 144/89 (107) 97 I/O 06/05/17 06/05/17 06/05/17 06/06/17 06/06/17 06/06/17 07:00 15:00 23:00 07:00 15:00 23:00 Intake Total 1560 ml 1058 ml 966 ml 954 ml 204 ml Balance 1560 ml 1058 ml 966 ml 954 ml 204 ml Intake Oral 360 ml 240 ml IV Total 1200 ml 1058 ml 726 ml 954 ml 204 ml # Voids 4 3 4 # Bowel Movements 2 1 Result Diagram: 06/06/1781406/06/17814 Objective Remarks GENERAL: This is a well-built middle-aged white male who is alert in no acute distress. No pallor or cyanosis. No clubbing or peripheral edema. Skin turgor was good. HEENT: Head normocephalic. Pupils are reactive and equal. Tongue is moist. Throat is injected. Nasal mucosa clear. NECK: No bruits or thyroid enlargement or lymphadenopathy. CHEST: Decreased excursions with occasional wheezes heard . No crackles on either side. HEART: The heart sounds are irregular S1-S2. No murmur. No S3. ABDOMEN: Obese, protuberant without masses, no organomegaly or tenderness. Bowel sounds are active. EXTREMITIES: No edema. No calf tenderness. NEUROLOGIC: Reflexes 1+ with no gross motor deficits. SKIN: No lesions. Assessment and Plan Assessment and Plan IMPRESSION 1. Left lower lobe pneumonia with lung abscess 2. Sepsis 3. Cough syncope. 4. Ethanolism 5. Probable reactive airways. Plan : 1. Cont antibiotics.as Ordered 2. Bronchoscopy cancelled since Pt would like to go home and see his Private Physician. 3. D/C O2 4. D/C Nebs and use Ventolin HFA , 2puffs tid prn 5. Antibiotics per ID. 6. Pt will see his Primary Susanna Maharaj MD Jun 06, 2017 19:22
== END 2017-06-06 20:30 | disposition home or self-care (01) | DRG 871 ==
LOC: NEPD 17:17 → NEDA 23:29 → N05A 06-03 00:56
PROVIDERS: ADMIT Hospitalist; ATTEND Hospitalist
DX: A41.89 Other specified sepsis (principal); J85.1 Abscess of lung with pneumonia; R55 Syncope and collapse; M54.9 Dorsalgia, unspecified; R09.82 Postnasal drip; F10.20 Alcohol dependence, uncomplicated; Z53.29 Procedure and treatment not carried out because of patient's decision for other reasons
CPT/HCPCS: 71010; 71275; 80048; 80053; 82550; 82552; 83735; 84484; 85025; 85027; 85610; 85730; 87015; 87040; 87070; 87102; 87116; 87205; 87206; 93005; 94150; J2543; J3370; J7030; J7050; Q9967